=== PATIENT | male | born 1960 | race Caucasian/White ===

== ENCOUNTER 2025-09-07 17:13 | Inpatient (IN) | payer MEDICARE, OTHER ==
[~2025-09-07] VITALS: Ht 165.1 cm; Wt 64.9 kg
[2025-09-07 18:35] LABS: PLATELET COUNT (AUTO) 146 K/uL (150-450); RED BLOOD CELL COUNT(AUTO) 4.54 MIL/uL (4.5-6.0); RED CELL DISTRIBUTION WIDTH 12.9 % (11.5-15.0); WHITE BLOOD COUNT (AUTO) 9.4 K/uL (4.3-11.0)
[2025-09-07] MEDS: LEVETIRACETAM (500MG) 1,500 MG in IV NS 0.9% 100 ML IV ONE (18:41)
[2025-09-07 18:51] LABS: CALCIUM, SERUM 8.6 mg/dL (8.5-10.1); CREATININE 1.4 mg/dL (0.6-1.3); SODIUM SERUM 142.0 mmol/L (136-145); UREA NITROGEN, BLOOD 14.0 mg/dL (7-18)
[2025-09-07 18:58] LABS: ASPARTATE AMINOTRANSFERASE 12.0 U/L (15-37); TOTAL PROTEIN, SERUM 6.9 g/dL (6.4-8.2)
[2025-09-07 19:43] LABS: APPEARANCE,URINE CLEAR (CLEAR); BLOOD, URINE TRACE-INTA Ery/uL (NEGATIVE); LEUKOCYTE ESTERASE ,URINE NEGATIVE (NEGATIVE); NITRITE, URINE POSITIVE (NEGATIVE); UGLUCOSE NEGATIVE (NEGATIVE)
[2025-09-07 19:52] LABS: ADD URINE CULTURE YES; HYALINE CASTS, URINE Few /LPF (None Seen); SQUAMOUS EPITHELIAL CELL,UR 0-2 /HPF (None Seen)
[2025-09-07] MEDS ORDERED: CEFTRIAXONE 1GM BAG (ER ONLY) 50 ML IV ONE (20:18)
[2025-09-07] MEDS: CEFTRIAXONE 1GM BAG (ER ONLY) 1 GM/50 ML PIGGYBACK IV ONE (20:47)
[2025-09-07] MEDS ORDERED: Z GUARD REMEDY 4 OZ OINT TP PRN (22:00)
[2025-09-07] MEDS ORDERED: ACETAMINOPHEN 325 MG TABLET PO PRN (22:00)
[2025-09-07] MEDS ORDERED: ONDANSETRON HCL/PF 4 MG/2 ML VIAL IVP PRN (22:00)
[2025-09-07] MEDS ORDERED: LORAZEPAM INJ 2 MG/ML VIAL IV PRN (22:00)
[2025-09-07] MEDS ORDERED: LEVE100S PO (22:24)
[2025-09-07] MEDS ORDERED: ACET-2030 PO (22:24)
[2025-09-07] MEDS ORDERED: BISA-79 PO (22:24)
[2025-09-07] MEDS ORDERED: MAGN24002 PO (22:24)
[2025-09-07] MEDS ORDERED: LAMO100T17 PO (22:24)
[2025-09-07] MEDS ORDERED: ERGO500093 PO (22:24)
[2025-09-07] MEDS ORDERED: LACO150T2 PO (22:24)
[2025-09-07] MEDS ORDERED: SENN8.6T19 PO (22:31)
[2025-09-07] MEDS ORDERED: PYRI60TA PO (22:31)
[2025-09-07] MEDS ORDERED: OMEP40CA21 PO (22:31)
[2025-09-07] MEDS ORDERED: TERA2CAP4 PO (22:43)
[2025-09-07] MEDS ORDERED: ASCO500C18 PO (22:43)
[2025-09-07] MEDS ORDERED: SIMV-46 PO (22:43)
[2025-09-07] MEDS ORDERED: TOPI200T16 PO (22:43)
[2025-09-07] MEDS ORDERED: CYAN1TAB43 PO (22:45)
[2025-09-08] VITALS: BP 120/82; TEMP 97.5; O2SAT 98
[2025-09-08] MEDS: LACOSAMIDE ORAL SOLN 50 MG/5 ML UDC GT SCH (01:36)
[2025-09-08 04:00] VITALS: BP 118/69; TEMP 98.4; O2SAT 96
[2025-09-08 06:46] LABS: PLATELET COUNT (AUTO) 160 K/uL (150-450); RED BLOOD CELL COUNT(AUTO) 4.58 MIL/uL (4.5-6.0); RED CELL DISTRIBUTION WIDTH 12.8 % (11.5-15.0); WHITE BLOOD COUNT (AUTO) 7.6 K/uL (4.3-11.0)
[2025-09-08 07:04] LABS: CALCIUM, SERUM 9.0 mg/dL (8.5-10.1); CREATININE 1.3 mg/dL (0.6-1.3); PHOSPHORUS 3.3 mg/dL (2.5-4.9); SODIUM SERUM 145.0 mmol/L (136-145); UREA NITROGEN, BLOOD 14.0 mg/dL (7-18)
[2025-09-08 08:00] VITALS: BP 141/92; TEMP 97.2; O2SAT 74
[2025-09-08] MEDS: TOPIRAMATE 100 MG TABLET PO SCH (08:17)
[2025-09-08] MEDS: PANTOPRAZOLE 40 MG TABLET.DR PO SCH (08:17)
[2025-09-08] MEDS: ASCORBIC ACID 500 MG TABLET PO SCH (08:17)
[2025-09-08] MEDS: LEVETIRACETAM SOL (5 ML) 100 MG/ML UDC PO SCH (08:18)
[2025-09-08] MEDS ORDERED: LACOSAMIDE 300 MG PO SCH (09:00)
[2025-09-08 12:00] VITALS: BP 113/75; TEMP 97.9; O2SAT 98
[2025-09-08 16:00] VITALS: BP 101/77; TEMP 97.7; O2SAT 98
[2025-09-08] MEDS: TERAZOSIN HCL 1 MG CAPSULE PO SCH (17:14)
[2025-09-08] MEDS: SIMVASTATIN 20 MG TABLET PO SCH (17:14)
[2025-09-08 20:00] VITALS: BP 120/70; TEMP 97.9; O2SAT 94
[2025-09-08] MEDS: CEFTRIAXONE 1 G in IV D5W 50 ML IV SCH (22:23)
[2025-09-09] VITALS: BP 129/77; TEMP 97.7; O2SAT 97
[2025-09-09 04:00] VITALS: BP 108/70; TEMP 97.6; O2SAT 96
[2025-09-09 08:00] VITALS: BP 130/83; TEMP 97.3; O2SAT 94
[2025-09-09] MEDS: LEVETIRACETAM (250 MG) 250 MG TABLET PO SCH (08:46)
[2025-09-09 12:00] VITALS: BP 130/80; TEMP 97.3; O2SAT 97
[2025-09-09 16:00] VITALS: BP 129/76; TEMP 98.2; O2SAT 97
[2025-09-09 20:00] VITALS: BP 126/57; TEMP 98.4; O2SAT 96
[2025-09-10 04:00] VITALS: BP 107/94; TEMP 98.1
[2025-09-10 08:00] VITALS: BP 118/67; TEMP 97.7; O2SAT 97
[2025-09-10 12:00] VITALS: BP 118/67; TEMP 97.7; O2SAT 97
[2025-09-10 16:00] VITALS: BP 92/68; TEMP 97.9; O2SAT 97
[2025-09-10 20:00] VITALS: BP 95/60; TEMP 98.1; O2SAT 95
[2025-09-11 04:00] VITALS: BP 140/68; TEMP 97.7; O2SAT 95
[2025-09-11 04:06] LABS: LAMOTRIGINE 5.2 ug/mL (2.0-20.0)
[2025-09-11 08:00] VITALS: BP 140/87; TEMP 97.6; O2SAT 98
[2025-09-11 08:42] VITALS: BP 140/87; TEMP 97.6; O2SAT 98
[2025-09-11 15:59] VITALS: BP 100/71; TEMP 97.5; O2SAT 97
[2025-09-11 20:00] VITALS: BP 122/86; TEMP 98.1; O2SAT 97
[2025-09-12 04:00] VITALS: BP 109/62; TEMP 98.3; O2SAT 95; O2SAT 98
[2025-09-12 05:07] LABS: LEVETIRACETAM 46.6 ug/mL (10.0-40.0)
[2025-09-12 12:00] VITALS: BP 114/67; TEMP 98; O2SAT 97
== END 2025-09-12 16:40 | disposition home health service (06) | DRG 101 ==
LOC: ER 17:15 → MEDSG1 22:10 → TELE1 22:23 → MEDSG1 09-09 09:57
PROVIDERS: ADMIT Nurse Practitioner Family
DX: G40.909 Epilepsy, unspecified, not intractable, without status epilepticus (principal); N39.0 Urinary tract infection, site not specified; F79 Unspecified intellectual disabilities; K21.9 Gastro-esophageal reflux disease without esophagitis; N40.0 Benign prostatic hyperplasia without lower urinary tract symptoms; F41.9 Anxiety disorder, unspecified; Z20.822 Contact with and (suspected) exposure to COVID-19; E78.5 Hyperlipidemia, unspecified; R13.10 Dysphagia, unspecified; M62.50 Muscle wasting and atrophy, not elsewhere classified, unspecified site; Z79.899 Other long term (current) drug therapy; M89.8X9 Other specified disorders of bone, unspecified site; B96.89 Other specified bacterial agents as the cause of diseases classified elsewhere; D69.6 Thrombocytopenia, unspecified; E86.9 Volume depletion, unspecified; I12.9 Hypertensive chronic kidney disease with stage 1 through stage 4 chronic kidney disease, or unspecified chronic kidney disease; N18.9 Chronic kidney disease, unspecified; G93.89 Other specified disorders of brain; Z86.73 Personal history of transient ischemic attack (TIA), and cerebral infarction without residual deficits
CPT/HCPCS: 36415; 70450-TC; 71045-TC; 80048-TC; 80076-TC; 80175; 80177; 81001; 83735-TC; 84100-TC; 84443-TC; 85025-TC; 87081-TC; 87086-TC; 92526; 92611; A4223; G0378; J0696; J1953; J7030; J7040; J7060